=== PATIENT | female | born 1995 | race Hispanic/Latino ===

== ENCOUNTER 2017-11-03 10:04 | Emergency (ER) | payer SELFPAY ==
[~2017-11-03] VITALS: Ht 160 cm; Wt 39.0 kg
[2017-11-03] MEDS ORDERED: ZOFRAN ODT4 MG PO (10:34)
[2017-11-03] MEDS ORDERED: NEXIUM40 M1 PO (11:17)
[2017-11-03 11:18] VITALS: BP 104/56
== END 2017-11-03 11:19 | disposition home or self-care (01) | DRG 392 ==
LOC: ED 10:04
DX: K29.00 Acute gastritis without bleeding (principal); F17.210 Nicotine dependence, cigarettes, uncomplicated